=== PATIENT | female | born 1995 | race Hispanic/Latino ===

== ENCOUNTER 2018-09-08 17:30 | Emergency (ER) | payer OTHER ==
--- NOTE | 2018-09-08 18:15 | RAD ---
RADIOGRAPH CHEST 1 VIEW: 09/08/18 HISTORY: 23-year-old female swallowed plastic foreign body. FINDINGS: The visualized lung hartmann are clear. The cardiomediastinal silhouette and hilar shadows are normal. The lateral costophrenic angles are sharp. The osseous structures appear normal. There is no pneu mothorax. Swallowed plastic may not be visible on plain radiograph. IMPRESSION: Negative. francesco [] POS: JIN
--- NOTE | 2018-09-08 18:22 | RAD ---
RADIOGRAPH NECK SOFT TISSUES 2 VIEWS: 09/08/18 HISTORY: 23-year-old female swallowed soft plastic foreign body. FINDINGS: No radiopaque foreign body is visualized, but plastic may not be visible on plain radiograph. No prev ertebral soft tissue swelling. No supraglottic swelling. Visualized portions of the trachea are paten t. No major osseous abnormality. IMPRESSION: Negative. POS: JIN
== END 2018-09-08 19:30 | disposition home or self-care (01) ==
LOC: ERS 17:30
DX: K20.9 Esophagitis, unspecified (principal)
CPT/HCPCS: 70360; 71045